=== PATIENT | male | born 1945 | race Caucasian/White ===

== ENCOUNTER 2023-02-16 16:16 | Emergency (ER) | payer MEDICARE, BC ==
[~2023-02-16] VITALS: Ht 172.7 cm; Wt 95.5 kg
[~2023-02-16 16:16] MED LIST: AMBI5TAB PO; ASPI81TA86 PO; CARV6.25 PO; ELIQ5TAB PO; LIPI80TA PO; LISI5TAB11 PO; MOVE1TAB PO; NEXI20CA PO
[2023-02-16] MEDS ORDERED: ACETAMINOPHEN 325MG/10.15ML UDC PO ONE (17:30)
[2023-02-16] MEDS ORDERED: ACETAMINOPHEN TAB 650MG DOSE (2X325MG) PO ONE (17:35)
[2023-02-16] MEDS ORDERED: ACET-897 PO (19:03)
[2023-02-16 19:17] VITALS: BP 173/91
== END 2023-02-16 19:38 | disposition home or self-care (01) ==
LOC: M ED 16:16
DX: M23.92 Unspecified internal derangement of left knee (principal); X50.1XXA Overexertion from prolonged static or awkward postures, initial encounter; Y92.821 Forest as the place of occurrence of the external cause; I25.810 Atherosclerosis of coronary artery bypass graft(s) without angina pectoris; Z95.5 Presence of coronary angioplasty implant and graft; Z95.0 Presence of cardiac pacemaker; Z86.79 Personal history of other diseases of the circulatory system; Z90.49 Acquired absence of other specified parts of digestive tract; Z87.891 Personal history of nicotine dependence; Z79.01 Long term (current) use of anticoagulants; Z79.82 Long term (current) use of aspirin; Z79.899 Other long term (current) drug therapy; Z88.5 Allergy status to narcotic agent; Z88.8 Allergy status to other drugs, medicaments and biological substances